=== PATIENT | female | born 1950 | race Caucasian/White ===

== ENCOUNTER 2018-03-08 07:00 | Emergency (ER) | payer MEDICAID ==
[2018-03-08] MEDS ORDERED: PROCHLORPERAZINE 10 MG TAB PO (08:00)
[2018-03-08] MEDS ORDERED: ACETAMINOPHEN 325 MG TAB PO (08:00)
== END 2018-03-08 08:12 | disposition home or self-care (01) ==
LOC: FTE 07:00
DX: S46.911A Strain of unspecified muscle, fascia and tendon at shoulder and upper arm level, right arm, initial encounter (principal); S06.0X0A Concussion without loss of consciousness, initial encounter; S70.02XA Contusion of left hip, initial encounter; W01.0XXA Fall on same level from slipping, tripping and stumbling without subsequent striking against object, initial encounter; Y92.410 Unspecified street and highway as the place of occurrence of the external cause
CPT/HCPCS: 99283; Z7502

== ENCOUNTER 2018-03-11 19:09 | Emergency (ER) | payer SELFPAY, MEDICAID | END 2018-03-11 21:42 | disposition left against medical advice (07) | LOC: FTE 21:42 | DX: Z53.21 Procedure and treatment not carried out due to patient leaving prior to being seen by health care provider (principal) ==

== ENCOUNTER 2018-03-12 13:56 | Emergency (ER) | payer MEDICAID ==
[2018-03-12] MEDS: DIPHTH/TET/ACEL PERTUSS (ADULT) 0.5 ML VIAL IM* (15:58)
[2018-03-12] MEDS: BACITRACIN 0.5%/ZINC 28.35 GM OINT TOP (16:05)
== END 2018-03-12 16:51 | disposition home or self-care (01) ==
LOC: FTE 13:56
DX: S81.802A Unspecified open wound, left lower leg, initial encounter (principal); R51 Headache; W11.XXXA Fall on and from ladder, initial encounter; Y92.9 Unspecified place or not applicable; Z23 Encounter for immunization
CPT/HCPCS: 70450; 73510; 73550; 73590; 90471; 90715; 99284-25

== ENCOUNTER 2018-03-20 07:33 | Emergency (ER) | payer MEDICAID | END 2018-03-20 08:39 | disposition home or self-care (01) | LOC: FTE 07:33 | DX: Z48.01 Encounter for change or removal of surgical wound dressing (principal) | CPT/HCPCS: 99282; Z7502 ==